=== PATIENT | female | born 1975 | race Asian ===

== ENCOUNTER 2019-10-11 05:10 | Day surgery (SDC) | payer OTHER ==
[~2019-10-11] VITALS: Ht 158.8 cm; Wt 76.4 kg
[~2019-10-11 05:10] MED LIST: HYDR25TA PO; LEVO75 PO; LOSA50TA64 PO; RINGERS SOLUTION,LACTATED 1,000 ML IV ONE
[2019-10-11] MEDS ORDERED: RINGERS SOLUTION,LACTATED 1,000 ML IV ONE (05:30)
[2019-10-11] MEDS ORDERED: LIDOCAINE/PF 1% 30 ML VIAL ONE (06:33)
[2019-10-11] MEDS ORDERED: BUPIVACAINE HCL/PF 0.5% 30 ML VIAL ONE (06:33)
[2019-10-11] MEDS ORDERED: HYDROmorphone 2 MG/ML SYRINGE IVP PRN (07:30)
[2019-10-11] MEDS ORDERED: FentaNYL CITRATE-PF 100 MCG/2 ML VIAL IVP PRN (07:30)
[2019-10-11] MEDS ORDERED: KETOROLAC TROMETHAMINE 30 MG/ML VIAL IM ONE (07:45)
[2019-10-11] MEDS ORDERED: OXYGEN THERAPY IH SCH (08:00)
[2019-10-11] MEDS ORDERED: KETOROLAC TROMETHAMINE 60 MG/2 ML VIAL IM ONE (12:00)
[2019-10-11] MEDS ORDERED: LIDOCAINE/PF 2% 5 ML VIAL INJ ONE (12:00)
[2019-10-11] MEDS ORDERED: MIDAZOLAM HCL 2 MG/2 ML VIAL IVP ONE (12:00)
[2019-10-11] MEDS ORDERED: FentaNYL CITRATE-PF 100 MCG/2 ML VIAL IVP ONE (12:00)
[2019-10-11] MEDS ORDERED: PROPOFOL 1% 20 ML VIAL IVP ONE (12:00)
== END 2019-10-11 09:20 | disposition home or self-care (01) ==
LOC: SURGERY 05:10
PROVIDERS: ATTEND Podiatrist Foot & Ankle Surgery
DX: D21.22 Benign neoplasm of connective and other soft tissue of left lower limb, including hip (principal); I10 Essential (primary) hypertension; G89.29 Other chronic pain; Z88.8 Allergy status to other drugs, medicaments and biological substances; Z79.899 Other long term (current) drug therapy
CPT/HCPCS: 28041; 84703; 88304; 88342; J1885; J2250; J2704; J3010; J3490 ×3; J7120; 88341

== ENCOUNTER 2019-12-04 05:15 | Day surgery (SDC) | payer OTHER ==
[~2019-12-04] VITALS: Ht 160 cm; Wt 81.4 kg
[~2019-12-04 05:15] MED LIST changes: +HYDR-1475 PO; -HYDR25TA PO; +LOSA-88 PO; -LOSA50TA64 PO
[2019-12-04] MEDS ORDERED: MIDAZOLAM HCL 2 MG/2 ML VIAL IVP ONE (05:16)
[2019-12-04] MEDS ORDERED: FentaNYL CITRATE-PF 100 MCG/2 ML VIAL IVP ONE (05:16)
[2019-12-04] MEDS ORDERED: KETAMINE HCL 50 MG/ML 10 ML VIAL IVP ONE (05:16)
[2019-12-04 05:55] LABS: BASOPHILS % (AUTO) 0.8 % (0.0-2.0); EOSINOPHILS % (AUTO) 3.4 % (1.0-6.0); HEMATOCRIT 41.5 % (36-46); HEMOGLOBIN 14.2 g/dL (12.0-16.0); LYMPHOCYTES # (AUTO) 2.6 K/uL (1.0-4.8); LYMPHOCYTES % (AUTO) 24.8 % (22.0-44.0); MEAN CORPUSCULAR HEMOGLOBIN 29.2 pg (26.0-34.0); MEAN CORPUSCULAR HGB CONC 34.2 G/dL (31.0-37.0); MEAN CORPUSCULAR VOLUME 86 fL (80-100); MONOCYTES # (AUTO) 0.6 K/uL (0.1-1.0); MONOCYTES % (AUTO) 5.8 % (2.0-9.0); NEUTROPHILS # (AUTO) 6.8 K/uL (1.8-7.7); NEUTROPHILS % (AUTO) 65.2 % (40.0-70.0); PLATELET COUNT (AUTO) 265 K/uL (150-450); RED BLOOD CELL COUNT(AUTO) 4.85 MIL/uL (4.00-5.20); RED CELL DISTRIBUTION WIDTH 13.9 % (11.5-14.5)
[2019-12-04 06:04] LABS: ANION GAP 8 mmol/L (8-16); CALCIUM, TOTAL 8.7 mg/dL (8.8-10.5); CARBON DIOXIDE 29 mmol/L (22-29); CHLORIDE 102 mmol/L (98-107); CREATININE 0.81 mg/dL (0.60-1.30); GLOMERULAR FILTR. RATE CALC > 60 mL/min (>60); GLUCOSE,RANDOM 104 mg/dL (70-110); POTASSIUM 3.2 mmol/L (3.5-5.1); SODIUM SERUM 139 mmol/L (136-145); UREA NITROGEN, BLOOD 9 mg/dL (7-18)
[2019-12-04] MEDS ORDERED: LIDOCAINE/PF 1% 30 ML VIAL ONE (06:34)
[2019-12-04] MEDS ORDERED: BUPIVACAINE HCL/PF 0.5% 30 ML VIAL ONE (06:34)
[2019-12-04] MEDS ORDERED: BACITRACIN 50,000 UNITS/VIAL ONE (06:35)
[2019-12-04] MEDS ORDERED: SODIUM CHLORIDE 0.9% 0 ML ONE (06:35)
[2019-12-04] MEDS ORDERED: SODIUM CL IRRIG SOLN BAG 0 ML IRRIG ONE (06:35)
[2019-12-04] MEDS ORDERED: TRIAMCINOLONE ACETONIDE 40 MG/ML VIAL ONE (07:23)
[2019-12-04] MEDS ORDERED: GELATIN SPONGE,ABSORBABLE 100 MM TP ONE (07:36)
[2019-12-04] MEDS ORDERED: THROMBIN, BOVINE 20000 UNITS/VIAL POWDER TP ONE (07:36)
[2019-12-04] MEDS ORDERED: KETOROLAC TROMETHAMINE 30 MG/ML VIAL IM ONE (08:00)
[2019-12-04] MEDS ORDERED: KETOROLAC TROMETHAMINE 30 MG/ML VIAL ONE (08:02)
[2019-12-04] MEDS ORDERED: ACETAMINOPHEN 1000 MG/ISO-OSM 100 ML IV ONE (08:21)
[2019-12-04] MEDS ORDERED: FentaNYL CITRATE-PF 100 MCG/2 ML VIAL IVP PRN (08:30)
[2019-12-04] MEDS ORDERED: ONDANSETRON HCL 4 MG/2 ML VIAL IVP PRN (08:30)
[2019-12-04] MEDS ORDERED: CELECOXIB 200 MG CAPSULE PO ONE (08:30)
[2019-12-04] MEDS ORDERED: HYDROmorphone 2 MG/ML SYRINGE IVP PRN (08:30)
[2019-12-04] MEDS ORDERED: CYCLOBENZAPRINE HCL 10 MG TABLET PO PRN (08:30)
[2019-12-04] MEDS ORDERED: ACETAMINOPHEN 1000 MG/ISO-OSM 100 ML IV SCH (08:30)
[2019-12-04] MEDS ORDERED: MEPERIDINE-PF 25 MG/ML VIAL ONE (08:37)
[2019-12-04] MEDS: MEPERIDINE-PF 25 MG/ML VIAL IVP PRN ×2 (08:39→08:42)
[2019-12-04] MEDS ORDERED: HYDROmorphone 2 MG/ML SYRINGE ONE (08:58)
[2019-12-04] MEDS ORDERED: OxyCODONE HCL/ACETAMINOPHEN 10-325 MG TABLET ONE (09:43)
[2019-12-04] MEDS ORDERED: LIDOCAINE 2% 5 ML JELLY ONE (21:36)
[2019-12-04] MEDS ORDERED: KETOROLAC TROMETHAMINE 60 MG/2 ML VIAL IM ONE (21:36)
[2019-12-04] MEDS ORDERED: PROPOFOL 1% 20 ML VIAL IVP ONE (21:36)
[2019-12-05] MEDS ORDERED: OxyCODONE HCL/ACETAMINOPHEN 10-325 MG TABLET PO PRN (08:30)
== END 2019-12-04 10:40 | disposition home or self-care (01) ==
LOC: SURGERY 05:15
PROVIDERS: ATTEND Podiatrist Foot & Ankle Surgery
DX: M72.2 Plantar fascial fibromatosis (principal); I10 Essential (primary) hypertension; Z79.899 Other long term (current) drug therapy
CPT/HCPCS: 28060; 36415; 80048; 84703; 85025; 87070; 87205; 88305; J0131; J0690; J1170; J1885 ×2; J2175; J2250; J2704; J3010; J3490 ×3; J7120; J3301

== ENCOUNTER 2021-10-15 10:22 | Day surgery (SDC) | payer OTHER ==
[~2021-10-15] VITALS: Ht 160 cm; Wt 77.3 kg
[~2021-10-15 10:22] MED LIST changes: +ATOR10TA84 PO; -HYDR-1475 PO; +HYDR25TA2 PO; +LOSA-382 PO; -LOSA-88 PO; +POTA8CAP20 PO
[2021-10-15] MEDS ORDERED: FentaNYL CITRATE PF 100 MCG/2 ML VIAL IVP ONE (10:23)
[2021-10-15] MEDS ORDERED: MIDAZOLAM HCL 2 MG/2 ML VIAL IVP ONE (10:23)
[2021-10-15] MEDS ORDERED: PROPOFOL 1% 20 ML VIAL IVP ONE (10:23)
[2021-10-15 10:52] LABS: COVID AG,FIA SOURCE NASOPHARYNGEAL
[2021-10-15] MEDS ORDERED: BUPIVACAINE HCL/PF 0.5% 30 ML VIAL ONE (11:46)
[2021-10-15] MEDS ORDERED: LIDOCAINE/PF 1% 30 ML VIAL ONE (11:46)
[2021-10-15] MEDS ORDERED: TRIAMCINOLONE ACETONIDE 40 MG/ML VIAL ONE (12:43)
[2021-10-15] MEDS ORDERED: FentaNYL CITRATE PF 100 MCG/2 ML VIAL IVP PRN (13:15)
[2021-10-15] MEDS ORDERED: MEPERIDINE-PF 25 MG/ML VIAL IVP PRN (13:15)
[2021-10-15] MEDS ORDERED: KETOROLAC TROMETHAMINE 30 MG/ML VIAL IVP ONE (13:15)
[2021-10-15] MEDS ORDERED: HYDROmorphone 2 MG/ML VIAL IVP PRN (13:15)
[2021-10-15] MEDS ORDERED: ONDANSETRON HCL 4 MG/2 ML VIAL ONE (13:37)
[2021-10-15] MEDS ORDERED: ONDANSETRON HCL 4 MG/2 ML VIAL IVP ONE (13:45)
[2021-10-15] MEDS ORDERED: OXYGEN THERAPY IH SCH (20:00)
== END 2021-10-15 14:25 | disposition home or self-care (01) ==
LOC: SURGERY 10:22
PROVIDERS: ATTEND Podiatrist Foot & Ankle Surgery
DX: M72.2 Plantar fascial fibromatosis (principal); I10 Essential (primary) hypertension; E03.9 Hypothyroidism, unspecified; Z98.890 Other specified postprocedural states; Z88.6 Allergy status to analgesic agent; Z79.899 Other long term (current) drug therapy
CPT/HCPCS: 28043; 84703; 87426; 88304; 88341; 88342; C9803; J0690; J1170; J1885; J2250; J2405; J2704; J3010; J3301; J3490 ×2; J7120